=== PATIENT | male | born 2000 | race Hispanic/Latino ===

== ENCOUNTER 2019-09-25 08:06 | Day surgery (SDC) | payer BC ==
[~2019-09-25] VITALS: Ht 170.2 cm; Wt 100.2 kg
[~2019-09-25 08:06] MED LIST: SODIUM CHLORIDE 0.9% 1000ML 1,000 ML IV ONE
[2019-09-25 08:37] VITALS: BP 111/71
[2019-09-25] MEDS ORDERED: ALBU8.5H8 IH (08:49)
[2019-09-25] MEDS ORDERED: PROPOFOL 10 MG/ML 20ML VIAL IV ONE (09:32)
[2019-09-25 09:50] VITALS: BP 114/64
[2019-09-25 09:56] VITALS: BP 114/54
[2019-09-25 10:02] VITALS: BP 126/62
[2019-09-25 10:06] VITALS: BP 117/60
== END 2019-09-25 10:35 | disposition home or self-care (01) ==
LOC: DAH 08:06 → ENDO 08:06
PROVIDERS: ATTEND Internal Medicine
DX: R14.2 Eructation (principal); K31.89 Other diseases of stomach and duodenum; K21.9 Gastro-esophageal reflux disease without esophagitis; J45.909 Unspecified asthma, uncomplicated; Z98.890 Other specified postprocedural states; Z79.899 Other long term (current) drug therapy; Z82.49 Family history of ischemic heart disease and other diseases of the circulatory system
CPT/HCPCS: 43239; A4215; A4221; A4222; A4223; A4606; A4620; A4663; J2704; J7030